=== PATIENT | female | born 1940 | race Caucasian/White ===

== ENCOUNTER 2018-11-17 10:09 | Observation (INO) | payer OTHER ==
[~2018-11-17] VITALS: Ht 157.5 cm; Wt 64.6 kg
[2018-11-17] MEDS ORDERED: CIPR-193 PO (12:23)
--- NOTE | 2018-11-17 14:42 | ERD ---
ER Documentation Chief Complaint Chief Complaint abdominal and back pain ; vaginal bleeding x 7 days HPI This is a very pleasant 78-year-old female that presents to the emergency department complaining of intermittent abdominal pain. She states that the pain is localized around the suprapubic region. She also states she is been e xperiencing diffuse back pain. This is been intermittent for several months but 7 days ago the patient stated her symptoms did worsen. She noticed vaginal bleeding. She stated she had been placed on ciprofloxacin to treat a suspected urinary tract infection. She noticed that there was blood while wiping after urination. The vaginal bleeding became heavier which prompted her to come to the emergency department to be further evaluated. She is felt weak but has had no fevers no shaking no chills. She denies any weight loss. ROS All systems reviewed and are negative except as per history of present illness. Medications Home Meds Reported Medications Ciprofloxacin Hcl* (Ciprofloxacin Hcl*) 250 Mg Tablet, 250 MG PO Q12H, #6 TAB TAKE BOR 3 DAYS,START DATE 11/15/18 11/17/18 Allergies Allergies: Coded Allergies: Penicillins (Verified Allergy, Unknown, 11/17/18) aspirin (Verified Allergy, Unknown, 11/17/18) PMhx/Soc Hx Cardiac Disorders: Yes (HDL) Hx Miscellaneous Medical Probl: Yes (UTI) Hx Alcohol Use: No Hx Substance Use: No Hx Tobacco Use: No Smoking Status: Current every day smoker Physical Exam Vitals Vital Signs Date Temp Pulse Resp B/P (MAP) Pulse Ox O2 O2 Flow FiO2 Time Delivery Rate 11/17/18 98.9 76 20 135/61 97 10:13 (85) Physical Exam Constitutional:Well-developed. Well-nourished. HEENT:Normocephalic. Atraumatic.Pupils were equal round reactive to light. Moist mucous membranes.No tonsillar exudates. Neck: No nuchal rigidity. No lymphadenopathy. No posterior cervical spine tenderness or step-offs. Respiratory: Not using accessory muscles of respiration.Lungs were clear to auscultation bilaterally. No rhonchi. No rales. No wheezing. Cardiovascular: Regular rate regular rhythm.No murmurs. No rubs were appreciated.S1, S2 normal. Distal pulses are palpable 2+ bilaterally. GI: Abdomen was soft. Suprapubic tenderness. Tenderness in the left lower quad rant. No tenderness of right lower quadrant over McBurney's point. Bilateral CVA tenderness.. Non Distended. No pulsatile abdominal masses or bruits. No rebound. No guarding. Bowel sounds were present and normal. Muscle skeletal: Full range of motion of both the upper and lower extremities bilaterally.Normal muscle tone.No assymetrical calf tenderness or swelling. No tenderness with palpation or percussion of the thoracic or lumbar spinous processes. Skin: No petechia, no purpura. No lesions on the palms or the soles of the feet. No maculopapular rash. NEURO: Patient was alert, awake, orientated x3.No facial droop. Gait observed and normal with no ataxia.Speech had regular rate and rhythm. No focal neurological deficits. Result Diagram: 11/17/18 1227 11/17/18 1227 Results 24 hrs Laboratory Tests Test 11/17/18 12:27 White Blood Count 6.8 10^3/ul Red Blood Count 4.53 10^6/ul Hemoglobin 13.3 g/dl Hematocrit 40.9 % Mean Corpuscular Volume 90.3 fl Mean Corpuscular Hemoglobin 29.4 pg Mean Corpuscular Hemoglobin Concent 32.5 g/dl Red Cell Distribution Width 14.1 % Platelet Count 216 10^3/UL Mean Platelet Volume 10.6 fl Immature Granulocytes % 0.400 % Neutrophils % 46.5 % Lymphocytes % 42.6 % Monocytes % 8.0 % Eosinophils % 1.9 % Basophils % 0.6 % Nucleated Red Blood Cells % 0.0 /100WBC Immature Granulocytes # 0.030 10^3/ul Neutrophils # 3.2 10^3/ul Lymphocytes # 2.9 10^3/ul Monocytes # 0.5 10^3/ul Eosinophils # 0.1 10^3/ul Basophils # 0.0 10^3/ul Nucleated Red Blood Cells # 0.0 10^3/ul Urine Color STRAW Urine Clarity CLEAR Urine pH 7.0 Urine Specific [place] 1.004 Urine Ketones NEGATIVE mg/dL Urine Nitrite NEGATIVE mg/dL Urine Bilirubin NEGATIVE mg/dL Urine Urobilinogen NEGATIVE mg/dL Urine Leukocyte Esterase NEGATIVE Merna/ul Urine Microscopic RBC 2 /HPF Urine Microscopic WBC 0 /HPF Urine Hemoglobin 1+ mg/dL Urine Glucose NEGATIVE mg/dL Urine Total Protein NEGATIVE mg/dl Sodium Level 143 mmol/L Potassium Level 4.0 mmol/L Chloride Level 108 mmol/L Carbon Dioxide Level 26 mmol/L Anion Gap 9 Blood Urea Nitrogen 11 mg/dl Creatinine 0.66 mg/dl Est Glomerular Filtrat Rate mL/min mL/min Glucose Level 99 mg/dl Calcium Level 9.4 mg/dl Total Bilirubin 0.4 mg/dl Direct Bilirubin 0.00 mg/dl Indirect Bilirubin 0.4 mg/dl Aspartate Amino Transf (AST/SGOT) 24 IU/L Alanine Aminotransferase (ALT/SGPT) 19 IU/L Alkaline Phosphatase 83 IU/L Total Protein 7.6 g/dl Albumin 4.5 g/dl Globulin 3.10 g/dl Albumin/Globulin Ratio 1.45 Lipase 208 U/L Procedures/MDM This is a 78-year-old female that presented to the emergency department post menopausal vaginal bleeding and severe abdominal pain. The patient had been placed in a cardiac catheterization technician continuous pulse oximetry and IV access was established by nursing staff. The CT scan of the abdomen have been ordered and reviewed by both myself and the radiologist. The patient indicated that there is multiple soft tissue nodules that were seen throughout the bilateral breast. This was concerning for neoplasm. In addition there was mesenteric lymphadenopathy that was also concerning for neoplasm or lymphoma. The patient had no left light abnormality's. Urinalysis did not indicate an infectious process. An ultrasound of the pelvis is currently pending. Given the severity of the patient's symptoms I was concerned for new onset metastatic neoplasm and the patient will be admitted for observation under the care of Dr. Arvizu. The patient I did feel stable to go to the medical surgical floor and will be admitted for observation. Departure Diagnosis: Primary Impression: Postmenopausal vaginal bleeding Additional Impression: Neoplasm Condition: Serious MAYITO GALAVIZ MD Nov 17, 2018 14:42
[2018-11-17] MEDS ORDERED: ONDANSETRON 4 MG INJ IV PRN ×2 (15:00→16:30)
[2018-11-17] MEDS ORDERED: ACETAMINOPHEN 325 MG TAB PO PRN ×2 (15:00→16:30)
--- NOTE | 2018-11-17 16:19 | HP ---
Date/Time of Note Date/Time of Note DATE: 11/17/18 TIME: 16:15 Assessment/Plan VTE Prophylaxis SCD applied (from Nsg): Yes Pharmacological prophylaxis: NA/contraindicated Pharm contraindication: low risk/ambulating Lines/Catheters IV Catheter Type (from Nrsg): [place] Assessment/Plan Hospital Course Assessment and plan 1. Breast nodules. Concerning for neoplasm at present. Oncologist notified. We will follow-up with labs and possible biopsy. 2. Enlarged fibroid uterus. No further reports of bleeding at present. Ingredient Handler consultation pending clinical course. 3. Mesenteric lymphadenopathy with associated fat stranding concerning for neoplasm or lymphoma. Oncologist notified. Follow-up with labs. Consultation to follow. 4. Lower abdominal pain suspect secondary to #2 and #3. Analgesics as needed. No reports of pain at present. Will monitor for now. Discussed POC with Dr. Arvizu Result Diagram: 11/17/18 1227 11/17/18 1227 Results 24hrs Laboratory Tests Test 11/17/18 12:27 White Blood Count 6.8 Red Blood Count 4.53 Hemoglobin 13.3 Hematocrit 40.9 Mean Corpuscular Volume 90.3 Mean Corpuscular Hemoglobin 29.4 Mean Corpuscular Hemoglobin Concent 32.5 Red Cell Distribution Width 14.1 Platelet Count 216 Mean Platelet Volume 10.6 H Immature Granulocytes % 0.400 Neutrophils % 46.5 Lymphocytes % 42.6 Monocytes % 8.0 Eosinophils % 1.9 Basophils % 0.6 Nucleated Red Blood Cells % 0.0 Immature Granulocytes # 0.030 Neutrophils # 3.2 Lymphocytes # 2.9 Monocytes # 0.5 Eosinophils # 0.1 Basophils # 0.0 Nucleated Red Blood Cells # 0.0 Urine Color STRAW Urine Clarity CLEAR Urine pH 7.0 Urine Specific [place] 1.004 Urine Ketones NEGATIVE Urine Nitrite NEGATIVE Urine Bilirubin NEGATIVE Urine Urobilinogen NEGATIVE Urine Leukocyte Esterase NEGATIVE Urine Microscopic RBC 2 Urine Microscopic WBC 0 Urine Hemoglobin 1+ H Urine Glucose NEGATIVE Urine Total Protein NEGATIVE Sodium Level 143 Potassium Level 4.0 Chloride Level 108 Carbon Dioxide Level 26 Anion Gap 9 Blood Urea Nitrogen 11 Creatinine 0.66 Est Glomerular Filtrat Rate mL/min Glucose Level 99 Calcium Level 9.4 Total Bilirubin 0.4 Direct Bilirubin 0.00 Indirect Bilirubin 0.4 Aspartate Amino Transf (AST/SGOT) 24 Alanine Aminotransferase (ALT/SGPT) 19 Alkaline Phosphatase 83 Total Protein 7.6 Albumin 4.5 Globulin 3.10 Albumin/Globulin Ratio 1.45 Lipase 208 HPI/ROS Admit Date/Time Admit Date/Time Hx of Present Illness This is a 78-year-old female with only reported past medical history of hypertension, who came to the hospital due to reports of lower abdominal pain with some vaginal bleeding. Patient reports having postmenopausal vaginal bleeding for roughly 6 days with associated lower abdominal pain. She reports some dysuria which is resolved. She states that she went to the hospital on November 15, 2018 and was given ciprofloxacin antibiotic for supposed UTI. Due to her continued pain and vaginal bleeding she came to [facility] for further evaluation. She does report that the bleeding is spotting only. It is not heavy. She says that it is pinkish in color. Her CBC and BMP were noted with no significant findings. She did have however abdominal pelvic CT scan that showed her to have multiple soft tissue nodules throughout the bilateral breasts concerning for neoplasm. There is also seen mesenteric lymphadenopathy with associated fat stranding concerning for neoplasm or lymphoma. There is also seen enlarged fibroid uterus. Pelvic ultrasound was also done that showed possible fibroid uterus. Although it is noted that it was an incomplete study due to lack of visualization of endometrium and bilateral ovaries. She denies any chest pain or shortness of breath. She appears comfortable at present. We will evaluate her for the aformentiond issues. ROS 12 point review of systems obtained and entirely negative except as mentioned in the history of present illness PMH/Family/Social Past Medical History Medical/surgical history 1. Patient reports having abdominal surgery after long time ago but does not recall what her surgical intervention was 2. Suspect hyperlipidemia Medications Current Medications Ondansetron HCl (Zofran Inj) 4 mg BRIDGE ORDER PRN IV NAUSEA/VOMITING; Start 11/17/18 at 15:00; Stop 11/18/18 at 14:59 Acetaminophen (Tylenol Tab) 650 mg ER BRIDGE PRN PO .MILD PAIN 1-3 OR TEMP; Start 11/17/18 at 15:00; Stop 11/18/18 at 14:59 IV Flush (NS 3 ml) 3 ml PER PROTOCOL IV ; Start 11/17/18 at 16:30; Status UNV Ondansetron HCl (Zofran Inj) 4 mg Q6H PRN IV NAUSEA/VOMITING; Start 11/17/18 at 16:30; Status UNV Acetaminophen (Tylenol Tab) 650 mg Q6H PRN PO .PAIN 1-3 OR TEMP; Start 11/17/18 at 16:30; Status UNV Acetaminophen (Tylenol Supp) 650 mg Q6H PRN [place] .PAIN 1-3 OR TEMP; Start 11/17/18 at 16:30; Status UNV Acetaminophen/ Hydrocodone Bitart ([place] (5/325)) 1 tab Q6H PRN PO .MOD PAIN 4- 6; Start 11/17/18 at 16:30; Status UNV Morphine Sulfate (morphine) 2 mg Q4H PRN IV .SEVERE PAIN 7-10; Start 11/17/18 at 16:30; Status UNV Famotidine (Pepcid) 20 mg Q12 PO ; Start 11/17/18 at 21:00; Status UNV Coded Allergies: Penicillins (Verified Allergy, Unknown, 11/17/18) aspirin (Verified Allergy, Unknown, 11/17/18) Family History Significant Family History: no pertinent family hx Exam/Review of Systems Vital Signs Vitals Vital Signs Date Temp Pulse Resp B/P (MAP) Pulse Ox O2 O2 Flow FiO2 Time Delivery Rate 11/17/18 57 18 127/56 97 Room Air 14:39 (79) 11/17/18 98.2 12:30 Exam Constitutional: alert, oriented Psych: nl mood/affect Neck: supple, non-tender Respiratory: clear to auscultation Cardiovascular: regular rate and rhythm Gastrointestinal: soft, tender (Minimally tender on lower abdomen) Musculoskeletal: nl extremities to inspection Extremities: normal pulses Neurological: TAPE CALENDER II-XII intact, nl mental status, nl speech [employer]OR[employer]ISES ADMISSIONS RECRUITER Nov 17, 2018 16:19
[2018-11-17] MEDS ORDERED: morphine 2 MG INJ IV PRN (16:30)
[2018-11-17] MEDS ORDERED: HYDROCODONE/APAP (5/325) TAB PO PRN (16:30)
[2018-11-17] MEDS ORDERED: ACETAMINOPHEN 650 MG SUPP PR PRN (16:30)
[2018-11-17] MEDS ORDERED: NACL 0.9% 3 ML SYG IV SCH (16:30)
[2018-11-17 20:13] VITALS: BP 125/62; PULSE 58; RESP 20
[2018-11-17 20:20] VITALS: Ht 157.5 cm; Wt 64.6 kg
[2018-11-17] MEDS ORDERED: traZODone 50 MG TAB PO ONE (21:00)
[2018-11-17] MEDS ORDERED: CIPROFLOXACIN 250 MG TAB PO SCH (21:30)
[2018-11-17] MEDS: FAMOTIDINE 20 MG TAB PO SCH (21:48)
[2018-11-18 02:12] VITALS: BP 122/60; PULSE 60; RESP 19
[2018-11-18 08:02] VITALS: BP 124/64; PULSE 62; RESP 18
[2018-11-18] MEDS: FAMOTIDINE 20 MG TAB PO SCH ×2 (08:54→21:07)
[2018-11-18] MEDS ORDERED: CIPROFLOXACIN 250 MG TAB PO SCH (09:00)
--- NOTE | 2018-11-18 11:08 | CONS ---
Assessment/Plan Assessment/Plan Hospital Course (Demo Recall) #Likely metastatic cancer -CT Abdomen/Pelvis demonstrates multiple soft tissue nodules throughout the bilateral breasts concerning for neoplasm. Also seen is mesenteric lymphadenopathy with associated fat stranding concerning for neoplasm or lymphoma. There is also seen enlarged fibroid uterus. 11/17/18 Pelvic ultrasound confirmed fibroid uterus. -CA 125. CA 27-29 and CA 15-3 are all pending -will order ultrasound guided bx of breast if patient consents #vaginal bleeding -pt will need CARBURETOR MECHANIC evaluation Consultation Date/Type/Reason Admit Date/Time October Date of Consultation: Nov 18, 2018 Type of Consult Oncology Reason for Consultation metastatic cancer Requesting Provider: MOISES IZQUIERDO NP Date/Time of Note DATE: 11/18/18 TIME: 11:00 Hx of Present Illness Ms Stevens is a pleasant 78-year-old female with past medical history of hypertension, who presented to [facility] ER on 11/17/18 with lower abdominal pain and post menopausal vaginal bleeding/spotting x 6 days. PT reports have gone to ER on on November 15, 2018 and was given ciprofloxacin antibiotic for supposed UTI. 11/17/18 CT Abdomen/Pelvis demonstrates multiple soft tissue nodules throughout the bilateral breasts concerning for neoplasm. Also seen is mesenteric lymphadenopathy with associated fat stranding concerning for neoplasm or lymphoma. There is also seen enlarged fibroid uterus. 11/17/18 Pelvic ultrasound confirmed fibroid uterus. Labs thus far reveal: LDH normal at 444. Normal Hg. Tumor markers are currently pending. Constitutional: poor po Eyes: pain ENT: no complaints Respiratory: shortness of breath Cardiovascular: lightheadedness Gastrointestinal: pain, decreased appetite Genitourinary: bleeding Musculoskeletal: back pain, bone/joint pain Skin: no complaints Neurologic: no complaints Past Medical History 1. Patient reports having abdominal surgery after long time ago but does not recall what her surgical intervention was 2. Suspect hyperlipidemia Home Meds Reported Medications Ciprofloxacin Hcl* (Ciprofloxacin Hcl*) 250 Mg Tablet, 250 MG PO Q12H, #6 TAB TAKE BOR 3 DAYS,START DATE 11/15/18 11/17/18 Medications Current Medications IV Flush (NS 3 ml) 3 ml PER PROTOCOL IV ; Start 11/17/18 at 16:30 Ondansetron HCl (Zofran Inj) 4 mg Q6H PRN IV NAUSEA/VOMITING; Start 11/17/18 at 16:30 Acetaminophen (Tylenol Tab) 650 mg Q6H PRN PO .PAIN 1-3 OR TEMP; Start 11/17/18 at 16:30 Acetaminophen (Tylenol Supp) 650 mg Q6H PRN [place] .PAIN 1-3 OR TEMP; Start 11/17/18 at 16:30 Acetaminophen/ Hydrocodone Bitart ([place] (5/325)) 1 tab Q6H PRN PO .MOD PAIN 4- 6; Start 11/17/18 at 16:30 Morphine Sulfate (morphine) 2 mg Q4H PRN IV .SEVERE PAIN 7-10; Start 11/17/18 at 16:30 Famotidine (Pepcid) 20 mg Q12 PO Last administered on 11/18/18at 08:54; Admin Dose 20 MG; Start 11/17/18 at 21:00 Ciprofloxacin (Cipro) 250 mg Q12 PO Last administered on 11/18/18at 08:54; Admin Dose 250 MG; Start 11/18/18 at 09:00; Stop 11/18/18 at 18:00 Allergies: Coded Allergies: Penicillins (Verified Allergy, Unknown, 11/17/18) aspirin (Verified Allergy, Unknown, 11/17/18) Family History Significant Family History: no pertinent family hx Social History Alcohol Use: none Smoking Status: Never smoker Drug Use: none Exam/Review of Systems Exam Vitals Vital Signs Date Temp Pulse Resp B/P (MAP) Pulse Ox O2 O2 Flow FiO2 Time Delivery Rate 11/18/18 98.2 62 18 124/64 94 Room Air 08:02 (84) Intake and Output 11/17/18 11/17/18 11/18/18 1515:00 23:00 07:00 IntakeIntake Total 200 ml 200 ml BalanceBalance 200 ml 200 ml Constitutional: alert, oriented Psych: no complaints, anxiety, depression Head: normocephalic Eyes: nl conjunctiva ENMT: nl external ears & nose Neck: supple Respiratory: clear to auscultation Cardiovascular: regular rate and rhythm Gastrointestinal: soft Musculoskeletal: nl extremities to inspection Results Result Diagram: 11/18/18 0436 11/18/18 0436 Results 24hrs Laboratory Tests Test 11/17/18 12:27 11/17/18 16:40 11/18/18 04:36 White Blood Count 6.8 4.8 # Red Blood Count 4.53 4.26 Hemoglobin 13.3 12.5 Hematocrit 40.9 38.4 Mean Corpuscular Volume 90.3 90.1 Mean Corpuscular Hemoglobin 29.4 29.3 Mean Corpuscular Hemoglobin Concent 32.5 32.6 Red Cell Distribution Width 14.1 14.1 Platelet Count 216 193 Mean Platelet Volume 10.6 H 11.1 H Immature Granulocytes % 0.400 0.400 Neutrophils % 46.5 46.7 Lymphocytes % 42.6 38.4 Monocytes % 8.0 10.3 Eosinophils % 1.9 3.4 Basophils % 0.6 0.8 Nucleated Red Blood Cells % 0.0 0.0 Immature Granulocytes # 0.030 0.020 Neutrophils # 3.2 2.2 Lymphocytes # 2.9 1.8 Monocytes # 0.5 0.5 Eosinophils # 0.1 0.2 Basophils # 0.0 0.0 Nucleated Red Blood Cells # 0.0 0.0 Urine Color STRAW Urine Clarity CLEAR Urine pH 7.0 Urine Specific [place] 1.004 Urine Ketones NEGATIVE Urine Nitrite NEGATIVE Urine Bilirubin NEGATIVE Urine Urobilinogen NEGATIVE Urine Leukocyte Esterase NEGATIVE Urine Microscopic RBC 2 Urine Microscopic WBC 0 Urine Hemoglobin 1+ H Urine Glucose NEGATIVE Urine Total Protein NEGATIVE Sodium Level 143 147 H Potassium Level 4.0 4.4 Chloride Level 108 110 Carbon Dioxide Level 26 27 Anion Gap 9 10 Blood Urea Nitrogen 11 15 Creatinine 0.66 0.69 Est Glomerular Filtrat Rate mL/min Glucose Level 99 89 Calcium Level 9.4 9.3 Total Bilirubin 0.4 0.5 Direct Bilirubin 0.00 0.00 Indirect Bilirubin 0.4 0.5 Aspartate Amino Transf (AST/SGOT) 24 21 Alanine Aminotransferase (ALT/SGPT) 19 17 Alkaline Phosphatase 83 60 Total Protein 7.6 6.2 # Albumin 4.5 3.7 Globulin 3.10 2.50 Albumin/Globulin Ratio 1.45 1.48 Lipase 208 Uric Acid 4.0 Lactate Dehydrogenase 444 Hepatitis B Surface Antigen NEGATIVE Hepatitis B Core Total Antibody NEGATIVE Hepatitis C Antibody NEGATIVE Hemoglobin A1c 5.6 Phosphorus Level 4.3 Magnesium Level 2.2 Triglycerides Level 138 Cholesterol Level 216 H LDL Cholesterol, Calculated 138 HDL Cholesterol 50 Cholesterol/HDL Ratio 4.3 Thyroid Stimulating Hormone (TSH) 3.710 Free Thyroxine Index 2.67 Thyroxine (T4) 8.7 Triiodothyronine (T3) Uptake 30.7 Medications Medication Current Medications IV Flush (NS 3 ml) 3 ml PER PROTOCOL IV ; Start 11/17/18 at 16:30 Ondansetron HCl (Zofran Inj) 4 mg Q6H PRN IV NAUSEA/VOMITING; Start 11/17/18 at 16:30 Acetaminophen (Tylenol Tab) 650 mg Q6H PRN PO .PAIN 1-3 OR TEMP; Start 11/17/18 at 16:30 Acetaminophen (Tylenol Supp) 650 mg Q6H PRN [place] .PAIN 1-3 OR TEMP; Start 11/17/18 at 16:30 Acetaminophen/ Hydrocodone Bitart ([place] (5/325)) 1 tab Q6H PRN PO .MOD PAIN 4- 6; Start 11/17/18 at 16:30 Morphine Sulfate (morphine) 2 mg Q4H PRN IV .SEVERE PAIN 7-10; Start 11/17/18 at 16:30 Famotidine (Pepcid) 20 mg Q12 PO Last administered on 11/18/18at 08:54; Admin Dose 20 MG; Start 11/17/18 at 21:00 Ciprofloxacin (Cipro) 250 mg Q12 PO Last administered on 11/18/18at 08:54; Admin Dose 250 MG; Start 11/18/18 at 09:00; Stop 11/18/18 at 18:00 WILDA OCONNOR M.D. Nov 18, 2018 11:08
--- NOTE | 2018-11-18 17:36 | PN ---
Date/Time of Note Date/Time of Note DATE: 11/18/18 TIME: 17:33 Assessment/Plan VTE Prophylaxis Risk score (from Ns)>0 risk: 2 SCD applied (from Nsg): Yes Lines/Catheters IV Catheter Type (from Nrsg): Saline Lock Urinary Cath still in place: No Assessment/Plan Hospital Course Assessment and plan 1. Breast nodules. - Concerning for neoplasm - Oncologist following - biopsy per oncologist 2. Enlarged fibroid uterus. - No further reports of bleeding at present. - Bottom Worker consultation pending clinical course. 3. Mesenteric lymphadenopathy with associated fat stranding concerning for neoplasm or lymphoma. - Oncologist notified. - f/u CA markers 4. Lower abdominal pain suspect secondary to #2 and #3. - Analgesics as needed. - No reports of pain at present. Will monitor for now. DISPO/PLAN: f/u possible biopsy and breast u.s. further recommendations pending clinical course. Discussed POC with Dr. Arvizu Result Diagram: 11/18/18 0436 11/18/18 0436 Results 24hrs Laboratory Tests Test 11/18/18 04:34 11/18/18 04:36 CA 125 Antigen 7.9 White Blood Count 4.8 # Red Blood Count 4.26 Hemoglobin 12.5 Hematocrit 38.4 Mean Corpuscular Volume 90.1 Mean Corpuscular Hemoglobin 29.3 Mean Corpuscular Hemoglobin Concent 32.6 Red Cell Distribution Width 14.1 Platelet Count 193 Mean Platelet Volume 11.1 H Immature Granulocytes % 0.400 Neutrophils % 46.7 Lymphocytes % 38.4 Monocytes % 10.3 Eosinophils % 3.4 Basophils % 0.8 Nucleated Red Blood Cells % 0.0 Immature Granulocytes # 0.020 Neutrophils # 2.2 Lymphocytes # 1.8 Monocytes # 0.5 Eosinophils # 0.2 Basophils # 0.0 Nucleated Red Blood Cells # 0.0 Sodium Level 147 H Potassium Level 4.4 Chloride Level 110 Carbon Dioxide Level 27 Anion Gap 10 Blood Urea Nitrogen 15 Creatinine 0.69 Est Glomerular Filtrat Rate mL/min Glucose Level 89 Hemoglobin A1c 5.6 Calcium Level 9.3 Phosphorus Level 4.3 Magnesium Level 2.2 Total Bilirubin 0.5 Direct Bilirubin 0.00 Indirect Bilirubin 0.5 Aspartate Amino Transf (AST/SGOT) 21 Alanine Aminotransferase (ALT/SGPT) 17 Alkaline Phosphatase 60 Total Protein 6.2 # Albumin 3.7 Globulin 2.50 Albumin/Globulin Ratio 1.48 Triglycerides Level 138 Cholesterol Level 216 H LDL Cholesterol, Calculated 138 HDL Cholesterol 50 Cholesterol/HDL Ratio 4.3 Thyroid Stimulating Hormone (TSH) 3.710 Free Thyroxine Index 2.67 Thyroxine (T4) 8.7 Triiodothyronine (T3) Uptake 30.7 Subjective 24 Hr Interval Summary Free Text/Dictation comfortable at present. no s/s of distress. no reports of vaginal bleeding Exam/Review of Systems Exam Vitals Vital Signs Date Temp Pulse Resp B/P (MAP) Pulse Ox O2 O2 Flow FiO2 Time Delivery Rate 11/18/18 98.2 62 18 124/64 94 Room Air 08:02 (84) Intake and Output 11/17/18 11/17/18 11/18/18 1515:00 23:00 07:00 IntakeIntake Total 200 ml 200 ml BalanceBalance 200 ml 200 ml Exam Constitutional: alert, oriented Psych: nl mood/affect Neck: supple, non-tender Respiratory: clear to auscultation Cardiovascular: regular rate and rhythm Gastrointestinal: soft, tender (Minimally tender on lower abdomen) Musculoskeletal: nl extremities to inspection Extremities: normal pulses Neurological: SUPERINTENDENT CAR CONSTRUCTION II-XII intact, nl mental status, nl speech Results Results 24hrs Laboratory Tests Test 11/18/18 04:34 11/18/18 04:36 CA 125 Antigen 7.9 White Blood Count 4.8 # Red Blood Count 4.26 Hemoglobin 12.5 Hematocrit 38.4 Mean Corpuscular Volume 90.1 Mean Corpuscular Hemoglobin 29.3 Mean Corpuscular Hemoglobin Concent 32.6 Red Cell Distribution Width 14.1 Platelet Count 193 Mean Platelet Volume 11.1 H Immature Granulocytes % 0.400 Neutrophils % 46.7 Lymphocytes % 38.4 Monocytes % 10.3 Eosinophils % 3.4 Basophils % 0.8 Nucleated Red Blood Cells % 0.0 Immature Granulocytes # 0.020 Neutrophils # 2.2 Lymphocytes # 1.8 Monocytes # 0.5 Eosinophils # 0.2 Basophils # 0.0 Nucleated Red Blood Cells # 0.0 Sodium Level 147 H Potassium Level 4.4 Chloride Level 110 Carbon Dioxide Level 27 Anion Gap 10 Blood Urea Nitrogen 15 Creatinine 0.69 Est Glomerular Filtrat Rate mL/min Glucose Level 89 Hemoglobin A1c 5.6 Calcium Level 9.3 Phosphorus Level 4.3 Magnesium Level 2.2 Total Bilirubin 0.5 Direct Bilirubin 0.00 Indirect Bilirubin 0.5 Aspartate Amino Transf (AST/SGOT) 21 Alanine Aminotransferase (ALT/SGPT) 17 Alkaline Phosphatase 60 Total Protein 6.2 # Albumin 3.7 Globulin 2.50 Albumin/Globulin Ratio 1.48 Triglycerides Level 138 Cholesterol Level 216 H LDL Cholesterol, Calculated 138 HDL Cholesterol 50 Cholesterol/HDL Ratio 4.3 Thyroid Stimulating Hormone (TSH) 3.710 Free Thyroxine Index 2.67 Thyroxine (T4) 8.7 Triiodothyronine (T3) Uptake 30.7 Medications Medication Current Medications IV Flush (NS 3 ml) 3 ml PER PROTOCOL IV ; Start 11/17/18 at 16:30 Ondansetron HCl (Zofran Inj) 4 mg Q6H PRN IV NAUSEA/VOMITING; Start 11/17/18 at 16:30 Acetaminophen (Tylenol Tab) 650 mg Q6H PRN PO .PAIN 1-3 OR TEMP; Start 11/17/18 at 16:30 Acetaminophen (Tylenol Supp) 650 mg Q6H PRN [place] .PAIN 1-3 OR TEMP; Start 11/17/18 at 16:30 Acetaminophen/ Hydrocodone Bitart ([place] (5/325)) 1 tab Q6H PRN PO .MOD PAIN 4- 6; Start 11/17/18 at 16:30 Morphine Sulfate (morphine) 2 mg Q4H PRN IV .SEVERE PAIN 7-10; Start 11/17/18 at 16:30 Famotidine (Pepcid) 20 mg Q12 PO Last administered on 11/18/18at 08:54; Admin Dose 20 MG; Start 11/17/18 at 21:00 Ciprofloxacin (Cipro) 250 mg Q12 PO Last administered on 11/18/18at 08:54; Admin Dose 250 MG; Start 11/18/18 at 09:00; Stop 11/18/18 at 18:00 MOISES IZQUIERDO NP Nov 18, 2018 17:35
[2018-11-18 19:55] VITALS: BP 109/60; PULSE 67; RESP 18
[2018-11-18] MEDS ORDERED: ZOLPIDEM 5 MG TAB PO ONE (21:00)
[2018-11-19 04:55] VITALS: BP 120/66; PULSE 79; RESP 18
[2018-11-19 07:27] VITALS: BP 118/63; PULSE 70; RESP 18
[2018-11-19] MEDS: FAMOTIDINE 20 MG TAB PO SCH (09:10)
--- NOTE | 2018-11-19 12:25 | CONS ---
Assessment/Plan Assessment/Plan Hospital Course (Demo Recall) #Concern for metastatic breast cancer -Breast ultrasound demonstrated benign nodules -CT Abdomen/Pelvis demonstrates mesenteric lymphadenopathy that although could be parts sales representative of malignancy could also represent inflammation -all tumor markers are noted to be within normal limits -given the above, there is nothing obvious to bx -will recheck CT in 3-4 week. If there concern for a growing malignancy, will pursue a bx at that time #vaginal bleeding -pt will need DIESEL LOCOMOTIVE FIRER/FIREMAN evaluation Consultation Date/Type/Reason Admit Date/Time Nov 17, 2018 at 14:45 Initial Consult Date 11/18/18 Type of Consult Oncology Reason for Consultation breast mass Requesting Provider: MOISES IZQUIERDO NP Date/Time of Note DATE: 11/19/18 TIME: 12:19 24 HR Interval Summary Free Text/Dictation breast ultrasound was done which demonstrated benign nodules Exam/Review of Systems Exam Vitals Vital Signs Date Temp Pulse Resp B/P (MAP) Pulse Ox O2 O2 Flow FiO2 Time Delivery Rate 11/19/18 97.7 70 18 118/63 97 Room Air 07:27 (81) Intake and Output 11/18/18 11/18/18 11/19/18 1515:00 23:00 07:00 IntakeIntake Total 120 ml 420 ml BalanceBalance 120 ml 420 ml Constitutional: alert Psych: no complaints Head: normocephalic Eyes: nl conjunctiva ENMT: nl external ears & nose Neck: supple Respiratory: clear to auscultation Cardiovascular: regular rate and rhythm Gastrointestinal: soft Musculoskeletal: nl extremities to inspection Results Result Diagram: 11/18/18 0436 11/18/18 0436 Medications Medication Current Medications IV Flush (NS 3 ml) 3 ml PER PROTOCOL IV ; Start 11/17/18 at 16:30 Ondansetron HCl (Zofran Inj) 4 mg Q6H PRN IV NAUSEA/VOMITING; Start 11/17/18 at 16:30 Acetaminophen (Tylenol Tab) 650 mg Q6H PRN PO .PAIN 1-3 OR TEMP; Start 11/17/18 at 16:30 Acetaminophen (Tylenol Supp) 650 mg Q6H PRN [place] .PAIN 1-3 OR TEMP; Start 11/17 at 16:30 Acetaminophen/ Hydrocodone Bitart ([place] (5/325)) 1 tab Q6H PRN PO .MOD PAIN 4- 6; Start 11/17/18 at 16:30 Morphine Sulfate (morphine) 2 mg Q4H PRN IV .SEVERE PAIN 7-10; Start 11/17/18 a t 16:30 Famotidine (Pepcid) 20 mg Q12 PO Last administered on 11/19/18at 09:10; Admin Dose 20 MG; Start 11/17/18 at 21:00 WILDA OCONNOR M.D. Nov 19, 2018 12:25
--- NOTE | 2018-11-19 13:43 | PDOCDIS ---
Discharge Instructions DIAGNOSIS Discharge Diagnosis 1. Breast nodules. 2. Enlarged fibroid uterus. 3. Mesenteric lymphadenopathy with associated fat stranding concerning for neoplasm or lymphoma. 4. Lower abdominal pain CONDITION [id number] Patient Condition: [id number] Stable HOME CARE INSTRUCTIONS: [id number] Diet Instructions: [id number] Regular ACTIVITY: [id number] Activity Restrictions: [id number] No Restrictions FOLLOW UP/APPOINTMENTS Follow-up Plan 1. Follow up with Dr. Yuki Gomez in one week Office Address [address] [place] [id number] Office 2. Follow up with your primary doctor in one week 3. Follow up with you media manager for further management and care of your uterine fibroid MOISES IZQUIERDO NP Nov 19, 2018 13:43
--- NOTE | 2018-11-19 13:47 | DS ---
Date/Time of Note Date/Time of Note DATE: 11/19/18 TIME: 13:44 Discharge Summary Admission/Discharge Info Admit Date/Time Nov 17, 2018 at 14:45 Discharge Date/Time Discharge Diagnosis 1. Breast nodules. 2. Enlarged fibroid uterus. 3. Mesenteric lymphadenopathy with associated fat stranding concerning for neoplasm or lymphoma. 4. Lower abdominal pain Patient Condition: Stable Hospital Course This is a 78-year-old female with only reported past medical history of hypertension, who came to the hospital due to reports of lower abdominal pain with some vaginal bleeding. Patient reports having postmenopausal vaginal bleeding for roughly 6 days with associated lower abdominal pain. She reports some dysuria which is resolved. She states that she went to the hospital on November 15, 2018 and was given ciprofloxacin antibiotic for supposed UTI. Due to her continued pain and vaginal bleeding she came to [facility] for further evaluation. She does report that the bleeding is spotting only. It is not heavy. She says that it is pinkish in color. Her CBC and BMP were noted with no significant findings. She did have however abdominal pelvic CT scan that showed her to have multiple soft tissue nodules throughout the bilateral breasts concerning for neoplasm. There is also seen mesenteric lymphadenopathy with associated fat stranding concerning for neoplasm or lymphoma. There is also seen enlarged fibroid uterus. Patient did report resolution of her vaginal spotting. We did advise patient for outpatient follow-up with her binding folder machine. As for her breast nodules seen on imaging as well as mesenteric lymphadenopathy, patient was seen by oncologist. She was plan for possible breast biopsy but after discussion with radiologist we did get ultrasound of the breast first. Imaging of the breast did show benign-appearing right 2:00 5 mm calcified mass probably calcified fibroadenoma. Tumor markers were also obtained with no significant findings. Patient was advised for follow-up with oncologist as outpatient. During her course of stay she did improve. Her abdominal pain did resolve. Her urinalysis with no UTI and her urine culture was also negative for bacteria. She was advised for outpatient follow-up with a primary physician. Plan of care was discussed with the patient and patient verbalized understanding. On the day of discharge patient was in stable condition Discussed POC with Dr. Arvizu Home Meds Discontinued Reported Medications Ciprofloxacin Hcl* (Ciprofloxacin Hcl*) 250 Mg Tablet, 250 MG PO Q12H, #6 TAB TAKE BOR 3 DAYS,START DATE 11/15/18 11/17/18 Follow-up Plan 1. Follow up with Dr. Yuki Gomez in one week Office Address [address] [facility] [address] [place] [id number] Office 2. Follow up with your primary doctor in one week 3. Follow up with you binding folder machine for further management and care of your uterine fibroid Primary Care Provider [facility] Time spent on discharge: > 30 minutes MOISES IZQUIERDO NP Nov 19, 2018 13:47
== END 2018-11-19 15:00 | disposition home or self-care (01) ==
LOC: E/R 10:09 → MS1 14:45
PROVIDERS: ADMIT Hospitalist; ATTEND Hospitalist
DX: N63.0 Unspecified lump in unspecified breast (principal); D25.9 Leiomyoma of uterus, unspecified; R59.0 Localized enlarged lymph nodes; R10.30 Lower abdominal pain, unspecified; I10 Essential (primary) hypertension
CPT/HCPCS: 36415; 74176; 76641; 76830; 76856; 80053; 80061; 81001; 83036; 83615; 83690; 83735; 84100; 84436; 84443; 84479; 84560; 85025; 86300; 86304; 86704; 86709; 86803; 87086; 87340; Z7500; Z7502; Z7610; G0378